=== PATIENT | female | born 1985 | race Caucasian/White ===

== ENCOUNTER → 2022-10-27 | Outpatient (CLI) | payer BC ==
[~2022-10-27] MED LIST: ACYC400 PO; Percocet 5-3251 EACH PO; SOMA350 MG PO; Seasonique 0.11 EACH PO
[2022-11-01 15:11] LABS: HPV 16 Negative (Negative); HPV 18 Negative (Negative); HPV OTHER HR TYPES Negative (Negative)
== END ==
LOC: LAB 14:12 → LAB SHORT 14:12
PROVIDERS: Physician Assistant
DX: Z01.419 Encounter for gynecological examination (general) (routine) without abnormal findings (principal)
CPT/HCPCS: 87624; 88175

== ENCOUNTER 2025-07-21 13:07 | Emergency (ER) | payer OTHER, BC ==
[~2025-07-21] VITALS: Ht 157.5 cm; Wt 75.8 kg
[2025-07-21 13:27] VITALS: BP 148/90
== END 2025-07-21 14:36 | disposition home or self-care (01) ==
LOC: ER 13:07
DX: S80.12XA Contusion of left lower leg, initial encounter (principal); W22.8XXA Striking against or struck by other objects, initial encounter; Z79.899 Other long term (current) drug therapy; Z88.2 Allergy status to sulfonamides; Z88.5 Allergy status to narcotic agent
CPT/HCPCS: 73590; 99283-25